=== PATIENT | male | born 1970 | race Hispanic/Latino ===

== ENCOUNTER 2019-04-21 19:35 | Emergency (ER) | payer SELFPAY ==
[2019-04-21] MEDS ORDERED: niCARdipine 20MG In NaCl 20 MG/200 ML BAG ONE (19:52)
--- NOTE | 2019-04-21 20:12 | CT ---
CT BRAIN NONCONTRAST: DATE: 04/21/2019 HISTORY: 48-year-old male with bilateral lower extremity weakness, worse on the left, left upper extremity hyp esthesia (numbness), headache, and dysarthria. Hypertension. FINDINGS: There is no evidence of acute intra-axial or extra-axial hemorrhage. There is no midline shift or any other mass effect. There is no extra-axial fluid collection. There is no evidence of obstructive hydrocephalus. Calvarium is intact. IMPRESSION: No acute intracranial findings.
[2019-04-21 20:21] LABS: #Basophils 0.1 thou/uL (0.0-0.2); #Eosinphils 0.1 thou/uL (0.0-0.7); #Lymphocytes 3.6 thou/uL (1.20-3.40); #Monocytes 0.6 thou/uL (0.11-0.59); #Neutrophils 7.3 thou/uL (1.40-6.50); %Basophils 1.1 % (0.0-1.0); %Eosinophils 1.3 % (0.0-10.0); %Lymphocytes 30.6 % (21.0-51.0); %Monocytes 4.7 % (0.0-10.0); %Neutrophils 62.4 % (42.0-75.0); Hemoglobin 15.5 g/dL (14.0-18.0); Mean Corpuscular HGB CONC 35.9 g/dL (32.0-36.0); Mean Corpuscular Hemoglobin 32.1 pg (27.0-31.0); Mean Corpuscular Volume 89.5 fL (78.0-98.0); Mean Platelet Volume 7.4 fL (7.4-10.4); Platelet Count 266 thou/uL (130-400); RBC Distribution Width 11.9 % (11.5-14.5); Red Blood Cell (RBC) Count 4.82 mill/uL (4.70-6.10); White Blood Cell (WBC) Count 11.7 thou/uL (4.8-10.8)
[2019-04-21 20:33] LABS: ALT (SGPT) 40 U/L (8-55); AST (SGOT) 28 U/L (5-34); Albumin 3.6 g/dL (3.5-5.0); Alkaline Phosphatase 106 U/L (40-110); Anion Gap 15 mmol/L (10-20); BUN (Urea Nitrogen) 12 mg/dL (8.9-20.6); Bilirubin, Total 0.8 mg/dL (0.2-1.2); CK (CPK) 67 U/L (30-200); Calc. Creatinine Clearance 0 mL/min (70-130); Calcium 9.4 mg/dL (7.8-10.44); Carbon Dioxide 26 mmol/L (22-29); Chloride 97 mmol/L (98-107); Estimated GFR-MDRD 74; Globulin 3.8 g/dL (2.4-3.5); Glucose 450 mg/dL (70-105); Potassium 3.2 mmol/L (3.5-5.1); Protein, Total 7.4 g/dL (6.0-8.3); Sodium 135 mmol/L (136-145)
[2019-04-21] MEDS ORDERED: Insulin Regular 300 UNITS/3 ML VIAL ONE (21:07)
[2019-04-22] MEDS ORDERED: Ondansetron PF 4 MG/2 ML Vial IVP PRN (00:55)
[2019-04-22] MEDS ORDERED: Ondansetron ODT 4 MG TAB PO PRN (00:55)
[2019-04-22] MEDS ORDERED: Acetaminophen 325 MG TAB PO PRN (00:55)
[2019-04-22] MEDS ORDERED: Enoxaparin Sodium 40 MG/0.4 ML SYRINGE SC SCH (09:00)
== END 2019-04-21 22:41 | disposition short-term general hospital (02) ==
LOC: SCSER 19:35
DX: I63.9 Cerebral infarction, unspecified (principal); I16.1 Hypertensive emergency; I10 Essential (primary) hypertension; E11.9 Type 2 diabetes mellitus without complications; Z79.84 Long term (current) use of oral hypoglycemic drugs
CPT/HCPCS: 36415; 36416; 70450; 80053; 82550; 84484; 85025; 93005; 96365; 96375; J1815

== ENCOUNTER 2022-05-18 19:20 | Inpatient (IN) | payer SELFPAY ==
[~2022-05-18 19:20] MED LIST: Iopamidol 370 76% 100 ML VIAL ONE
[2022-05-18] MEDS ORDERED: Calcium Chloride 1 GM/10 ML Abboject SYRINGE ONE (19:25)
[2022-05-18] MEDS ORDERED: Amiodarone 150 MG/3 ML VIAL ONE (19:25)
[2022-05-18] MEDS ORDERED: EPINEPHrine 1 MG/10 ML Abboject SYRINGE ONE (19:25)
[2022-05-18 19:41] LABS: Actual Bicarbonate (HCO3a) 17.4 mEq/L (22-28); Analyzer IN Cardio ER; Base Excess (BEa) -11.5 mEq/L (-2.0 to +3.0); CO2 Tension 51.3 mmHg (35.0-45.0); Calcium, Ionized (arterial) 1.41 mmol/L (1.12-1.30); Carboxyhemoglobin (COHb) 0.3 gm% (0.0-3.0); Hemoglobin (Hb) 13.7 g/dL (14.0-18.0); O2 Tension (PaO2), arterial 290.9 mmHg (80.0-100.0); Potassium - ABG Lab 2.68 mmol/L (3.70-5.30)
[2022-05-18 19:44] LABS: Puncture Site LRA; pH, Arterial 7.15 (7.35-7.45)
[2022-05-18 19:50] LABS: ALV-art Gradient 357.975 mmHg (0-20)
[2022-05-18] MEDS ORDERED: Nitroglycerin 100MG/250ML BOT 250 ML ONE (19:52)
[2022-05-18] MEDS ORDERED: Heparin 10,000 UNITS/ 10 ML VIAL ONE (19:52)
[2022-05-18] MEDS ORDERED: Lidocaine 1% (PF) 30 ML VIAL ONE (19:52)
[2022-05-18] MEDS ORDERED: Adenosine 6 MG/2 ML VIAL ONE (19:52)
[2022-05-18] MEDS ORDERED: Fentanyl CADD 100 ML IV SCH (20:00)
[2022-05-18 20:25] LABS: Amphetamine Not Detected (NotDetected); Barbiturates Screen Not Detected (NotDetected); Benzodiazepine Screen Not Detected (NotDetected); Cocaine Metabolite Screen Not Detected (NotDetected); Methadone Not Detected (NotDetected); Methamphetamine Not Detected (NotDetected); Opiate Screen Not Detected (NotDetected); Oxycodone Screen Not Detected (NotDetected); Phencyclidine (PCP) Not Detected (NotDetected); THC/Cannabinoid Screen Detected (NotDetected); Tricyclic Screen Not Detected (NotDetected)
[2022-05-18 20:49] LABS: SARS-CoV-2 NAA Rapid Test Not Detected (NotDetected)
[2022-05-18 20:50] LABS: Hemoglobin 14.3 g/dL (14.0-18.0); Mean Corpuscular HGB CONC 33.2 g/dL (32.0-36.0); Mean Corpuscular Volume 96.4 fl (78.0-98.0); Mean Platelet Volume 7.2 fL (7.4-10.4); Platelet Count 380 thou/uL (130-400); RBC Distribution Width 12.1 % (11.5-14.5); Red Blood Cell (RBC) Count 4.46 mill/uL (4.70-6.10); White Blood Cell (WBC) Count 33.9 thou/uL (4.8-10.8)
[2022-05-18] MEDS ORDERED: Heparin 25,000 units/D5W 500 ML ONE (21:00)
[2022-05-18 21:04] LABS: ALT (SGPT) 140 U/L (8-55); AST (SGOT) 257 U/L (5-34); Acetaminophen Less than 10.0 mcg/mL (10.0-30.0); Alcohol Less than 10 mg/dL (Less than 10); Alkaline Phosphatase 194 U/L (40-110); Anion Gap 19 mmol/L (10-20); BUN (Urea Nitrogen) 14 mg/dL (8.4-25.7); Bilirubin, Total 0.9 mg/dL (0.2-1.2); Calc. Creatinine Clearance 0 mL/min (70-130); Calcium 9.4 mg/dL (7.8-10.44); Carbon Dioxide 17 mmol/L (22-29); Chloride 102 mmol/L (98-107); Estimated GFR 80; Globulin 3.4 g/dL (2.4-3.5); Glucose 360 mg/dL (70-105); Potassium 3.3 mmol/L (3.5-5.1); Protein, Total 6.4 g/dL (6.0-8.3); Salicylate Less than 8.0 mg/dL (15.0-30.0); Sodium 135 mmol/L (136-145)
[2022-05-18] MEDS ORDERED: Midazolam HCl 2 mg/2 ml Vial ONE (21:08)
[2022-05-18] MEDS ORDERED: Ventilator Sedation Protocol 1 EACH FS ONE (21:22)
[2022-05-18] MEDS ORDERED: Electrolyte Replacement Protocol 1 EACH FS PRN (21:22)
[2022-05-18 21:24] LABS: Band 14 % (5-11); Lymphocytes 5 % (21-51); MDiff Complete? YES; Neutrophil 80 % (42-75); Platelet Morphology Comment Appears Adequate; RBC Morphology Normal; Reactive Lymphocytes 1 % (0-10)
[2022-05-18] MEDS ORDERED: Fentanyl BOLUS 250 ML IVPB PRN (21:30)
[2022-05-18] MEDS ORDERED: DISCONTINUE PREVIOUS NARCOTIC PAIN MEDICATIONS AND BENZODIAZEPINES FS SCH (21:30)
[2022-05-18] MEDS ORDERED: Propofol BOLUS 1,000 MG/100 ML VIAL IV PRN (21:30)
[2022-05-18 21:36] LABS: CKMB 67.4 ng/mL (0-6.6)
[2022-05-18] MEDS ORDERED: Nitroglycerin 100MG/250ML BOT IV PRN (21:53)
[2022-05-18 21:54] LABS: Actual Bicarbonate (HCO3a) 17.8 mEq/L (22-28); Base Excess (BEa) -4.8 mEq/L (-2.0 to +3.0); CO2 Tension 26.9 mmHg (35.0-45.0); Calcium, Ionized (arterial) 1.14 mmol/L (1.12-1.30); Carboxyhemoglobin (COHb) 0.3 gm% (0.0-3.0); O2 Tension (PaO2), arterial 212.1 mmHg (80.0-100.0); Potassium - ABG Lab 3.05 mmol/L (3.70-5.30); pH, Arterial 7.44 (7.35-7.45)
[2022-05-18 21:56] LABS: ALV-art Gradient 110.775 mmHg (0-20); Puncture Site Arterial Line
[2022-05-18] MEDS ORDERED: Sodium Chloride 0.9% 1,000 ML IV SCH (22:00)
[2022-05-18] MEDS ORDERED: Aspirin 300 MG Suppository PR SCH (22:00)
[2022-05-18] MEDS ORDERED: Furosemide 20 MG/2 ML VIAL SLOW IVP SCH (22:15)
[2022-05-18] MEDS ORDERED: Carvedilol 6.25 MG TAB PER TUBE SCH (22:15)
[2022-05-18] MEDS ORDERED: Nitroglycerin 50 MG/250 ML BOT 250 ML IVPB PRN (22:22)
[2022-05-18] MEDS: Enalaprilat Dihydrate 1.25 MG/ML VIAL SLOW IVP SCH (23:51)
[2022-05-18] MEDS: Potassium Chloride 20 MEQ in Premix Bag 1 BAG IVPB SCH (23:52)
[2022-05-19] MEDS: cefTRIAXone\\ROCEPHIN 2 GM in Sodium Chloride 0.9% 100 ML IVPB SCH ×2 (00:05→20:54)
[2022-05-19] MEDS: Potassium Chloride 20 MEQ in Premix Bag 1 BAG IVPB SCH (02:13)
[2022-05-19] MEDS: Midazolam HCl 2 mg/2 ml Vial SLOW IVP PRN ×2 (04:13→09:23)
[2022-05-19 04:14] LABS: ALT (SGPT) 120 U/L (8-55); AST (SGOT) 173 U/L (5-34); Albumin 2.8 g/dL (3.5-5.0); Alkaline Phosphatase 156 U/L (40-110); Anion Gap 17 mmol/L (10-20); BUN (Urea Nitrogen) 17 mg/dL (8.4-25.7); Bilirubin, Total 0.8 mg/dL (0.2-1.2); Calc. Creatinine Clearance 114 mL/min (70-130); Calcium 8.8 mg/dL (7.8-10.44); Carbon Dioxide 18 mmol/L (22-29); Chloride 102 mmol/L (98-107); Estimated GFR 83; Globulin 3.1 g/dL (2.4-3.5); Glucose 421 mg/dL (70-105); Phosphorus 3.2 mg/dL (2.3-4.7); Potassium 3.7 mmol/L (3.5-5.1); Protein, Total 5.9 g/dL (6.0-8.3); Sodium 133 mmol/L (136-145)
[2022-05-19 04:22] LABS: Troponin I 8.697 ng/mL (< 0.028)
[2022-05-19 04:38] LABS: Band 23 % (5-11); Hypochromia SLIGHT = 6-15 cells (100X) (0-5/hpf); Lymphocytes 4 % (21-51); MDiff Complete? YES; Mean Corpuscular Hemoglobin 31.2 pg (27.0-31.0); Mean Corpuscular Volume 94.6 fl (78.0-98.0); Mean Platelet Volume 7.1 fL (7.4-10.4); Monocytes 2 % (0-10); Neutrophil 71 % (42-75); Platelet Count 389 thou/uL (130-400); Platelet Morphology Comment Appears Adequate; RBC Distribution Width 11.8 % (11.5-14.5); Red Blood Cell (RBC) Count 4.17 mill/uL (4.70-6.10); White Blood Cell (WBC) Count 29.9 thou/uL (4.8-10.8)
[2022-05-19] MEDS: niCARdipine 25 MG in Sodium Chloride 0.9% 250 ML 250 ML IVPB SCH ×4 (05:24→14:16)
[2022-05-19] MEDS: HumaLOG 300 UNITS/3 ML VIAL SC PRN ×3 (05:26→18:19)
[2022-05-19] MEDS: Heparin 10,000 UNITS/ 10 ML VIAL SLOW IVP SCH (06:56)
[2022-05-19] MEDS: Carvedilol 6.25 MG TAB PER TUBE SCH ×2 (07:23→17:45)
[2022-05-19] MEDS: Enalaprilat Dihydrate 1.25 MG/ML VIAL SLOW IVP SCH ×4 (07:23→23:20)
[2022-05-19] MEDS: Pantoprazole 40 MG VIAL IVP SCH (07:24)
[2022-05-19] MEDS: Aspirin 300 MG Suppository PR SCH (07:24)
[2022-05-19] MEDS ORDERED: Verapamil 5 MG/2 ML VIAL ONE (07:35)
[2022-05-19 07:57] LABS: Actual Bicarbonate (HCO3a) 16.2 mEq/L (22-28); Base Excess (BEa) -4.7 mEq/L (-2.0 to +3.0); Carboxyhemoglobin (COHb) 0.4 gm% (0.0-3.0); Hemoglobin (Hb) 13.4 g/dL (14.0-18.0); O2 Tension (PaO2), arterial 108.4 mmHg (80.0-100.0); Potassium - ABG Lab 3.42 mmol/L (3.70-5.30); pH, Arterial 7.51 (7.35-7.45)
[2022-05-19 07:59] LABS: ALV-art Gradient 79.375 mmHg (0-20); CO2 Tension 20.9 mmHg (35.0-45.0); Puncture Site Arterial Line
[2022-05-19] MEDS: Propofol 1,000 MG/100 ML VIAL IV PRN ×3 (08:07→23:33)
[2022-05-19] MEDS ORDERED: Potassium Chloride 20 MEQ in Premix Bag 1 BAG IVPB SCH ×2 (08:45→09:15)
[2022-05-19 09:18] VITALS: BMI 33.2
[2022-05-19] MEDS: Furosemide 20 MG/2 ML VIAL SLOW IVP SCH (09:21)
[2022-05-19] MEDS: NPH, Human Insulin Isophane 300 UNIT/3 ML VIAL SC SCH ×2 (09:21→20:53)
[2022-05-19] MEDS: Sodium Chloride 0.9% 1,000 ML IV SCH (09:21)
[2022-05-19] MEDS: Morphine 4 MG/ML VIAL SLOW IVP PRN (09:22)
[2022-05-19] MEDS: Heparin 25,000 units/D5W 500 ML IV SCH (19:54)
[2022-05-20 05:06] LABS: ALT (SGPT) 85 U/L (8-55); AST (SGOT) 110 U/L (5-34); Albumin 2.7 g/dL (3.5-5.0); Alkaline Phosphatase 114 U/L (40-110); Anion Gap 11 mmol/L (10-20); BUN (Urea Nitrogen) 23 mg/dL (8.4-25.7); Bilirubin, Total 0.4 mg/dL (0.2-1.2); Calc. Creatinine Clearance 146 mL/min (70-130); Carbon Dioxide 25 mmol/L (22-29); Chloride 105 mmol/L (98-107); Estimated GFR 105; Globulin 3.1 g/dL (2.4-3.5); Glucose 130 mg/dL (70-105); Phosphorus 3.4 mg/dL (2.3-4.7); Potassium 3.3 mmol/L (3.5-5.1); Protein, Total 5.8 g/dL (6.0-8.3); Sodium 138 mmol/L (136-145)
[2022-05-20 05:20] LABS: Troponin I 12.164 ng/mL (< 0.028)
[2022-05-20] MEDS ORDERED: Potassium Chloride 20 MEQ TAB PO SCH (05:30)
[2022-05-20] MEDS: Heparin 10,000 UNITS/ 10 ML VIAL SLOW IVP SCH (05:39)
[2022-05-20] MEDS ORDERED: Potassium Bicarbonate/Cit Ac 20 MEQ TAB PER TUBE SCH (05:45)
[2022-05-20] MEDS: Enalaprilat Dihydrate 1.25 MG/ML VIAL SLOW IVP SCH ×5 (05:53→23:01)
[2022-05-20] MEDS: Carvedilol 6.25 MG TAB PER TUBE SCH ×2 (08:57→17:22)
[2022-05-20] MEDS: Propofol 1,000 MG/100 ML VIAL IV PRN (08:58)
[2022-05-20 10:29] LABS: #Lymphocytes 1.7 thou/uL (1.20-3.40); #Monocytes 1.3 thou/uL (0.11-0.59); #Neutrophils 21.3 thou/uL (1.40-6.50); %Basophils 0.1 % (0.0-1.0); %Eosinophils 0.2 % (0.0-10.0); %Lymphocytes 6.9 % (21.0-51.0); %Monocytes 5.2 % (0.0-10.0); %Neutrophils 87.7 % (42.0-75.0); Hemoglobin 12.7 g/dL (14.0-18.0); Mean Corpuscular HGB CONC 33.5 g/dL (32.0-36.0); Mean Corpuscular Hemoglobin 31.9 pg (27.0-31.0); Mean Corpuscular Volume 95.1 fl (78.0-98.0); Mean Platelet Volume 7.3 fL (7.4-10.4); Platelet Count 346 thou/uL (130-400); RBC Distribution Width 12.1 % (11.5-14.5); Red Blood Cell (RBC) Count 3.98 mill/uL (4.70-6.10); White Blood Cell (WBC) Count 24.4 thou/uL (4.8-10.8)
[2022-05-20] MEDS: Pantoprazole 40 MG VIAL IVP SCH (10:31)
[2022-05-20] MEDS: Aspirin 300 MG Suppository PR SCH (10:33)
[2022-05-20] MEDS: Furosemide 20 MG/2 ML VIAL SLOW IVP SCH (10:33)
[2022-05-20] MEDS: NPH, Human Insulin Isophane 300 UNIT/3 ML VIAL SC SCH (10:34)
[2022-05-20] MEDS: niCARdipine 25 MG in Sodium Chloride 0.9% 250 ML 250 ML IVPB SCH ×2 (10:42→17:23)
[2022-05-20 10:47] LABS: Potassium 3.7 mmol/L (3.5-5.1)
[2022-05-20] MEDS: Sodium Chloride 0.9% 1,000 ML IV SCH (10:52)
[2022-05-20] MEDS ORDERED: Piperacillin/Tazobactam 3.375 GM in Sodium Chloride 0.9% 100 ML IVPB SCH (14:15)
[2022-05-20] MEDS: Acetaminophen 325 MG TAB PER TUBE PRN ×2 (14:30→21:07)
[2022-05-20] MEDS: Heparin 25,000 units/D5W 500 ML IV SCH (15:18)
[2022-05-20] MEDS ORDERED: Piperacillin/Tazobactam 4.5 GM in Sodium Chloride 0.9% 100 ML IVPB SCH (18:00)
[2022-05-20] MEDS: Piperacillin/Tazobactam 3.375 GM in Sodium Chloride 0.9% 100 ML IVPB SCH (18:08)
[2022-05-20 19:16] LABS: Glucose POC Confirmation 70 mg/dl (70-105)
[2022-05-20] MEDS ORDERED: Dextrose 5% in Water 1,000 ML IV PRN (20:15)
[2022-05-20] MEDS ORDERED: Dextrose 50% Abboject 50 ML SYRINGE IVP PRN (20:15)
[2022-05-21] MEDS: Piperacillin/Tazobactam 3.375 GM in Sodium Chloride 0.9% 100 ML IVPB SCH ×3 (02:40→17:26)
[2022-05-21 04:08] LABS: #Monocytes 1.3 thou/uL (0.11-0.59); %Basophils 0.2 % (0.0-1.0); %Eosinophils 0.1 % (0.0-10.0); %Lymphocytes 9.3 % (21.0-51.0); %Monocytes 5.9 % (0.0-10.0); %Neutrophils 84.5 % (42.0-75.0); Hemoglobin 12.1 g/dL (14.0-18.0); Mean Corpuscular HGB CONC 32.9 g/dL (32.0-36.0); Mean Corpuscular Hemoglobin 32.3 pg (27.0-31.0); Mean Corpuscular Volume 98.3 fl (78.0-98.0); Mean Platelet Volume 7.6 fL (7.4-10.4); Platelet Count 311 thou/uL (130-400); RBC Distribution Width 11.9 % (11.5-14.5); Red Blood Cell (RBC) Count 3.74 mill/uL (4.70-6.10); White Blood Cell (WBC) Count 21.3 thou/uL (4.8-10.8)
[2022-05-21 04:17] LABS: Phosphorus 2.8 mg/dL (2.3-4.7)
[2022-05-21] MEDS: Enalaprilat Dihydrate 1.25 MG/ML VIAL SLOW IVP SCH ×3 (05:45→17:25)
[2022-05-21] MEDS: niCARdipine 25 MG in Sodium Chloride 0.9% 250 ML 250 ML IVPB SCH ×5 (05:53→22:19)
[2022-05-21 07:56] LABS: Actual Bicarbonate (HCO3a) 21.4 mEq/L (22-28); Base Excess (BEa) -0.6 mEq/L (-2.0 to +3.0); CO2 Tension 27.8 mmHg (35.0-45.0); Calcium, Ionized (arterial) 1.01 mmol/L (1.12-1.30); Carboxyhemoglobin (COHb) 1.1 gm% (0.0-3.0); Hemoglobin (Hb) 12.5 g/dL (14.0-18.0); O2 Tension (PaO2), arterial 85.7 mmHg (80.0-100.0); Potassium - ABG Lab 3.44 mmol/L (3.70-5.30)
[2022-05-21 08:04] LABS: Puncture Site RRA
[2022-05-21] MEDS ORDERED: FLU VACC QS2022-23(6MOS UP)/PF 60 MCG/0.5 ML SYRINGE IM ONE (09:00)
[2022-05-21] MEDS: Furosemide 20 MG/2 ML VIAL SLOW IVP SCH (10:53)
[2022-05-21] MEDS: Pantoprazole 40 MG VIAL IVP SCH (10:53)
[2022-05-21] MEDS: Aspirin 300 MG Suppository PR SCH (10:57)
[2022-05-21] MEDS: Carvedilol 6.25 MG TAB PER TUBE SCH ×2 (11:08→17:25)
[2022-05-21] MEDS: Sodium Chloride 0.9% 1,000 ML IV SCH (12:18)
[2022-05-21] MEDS ORDERED: Dextrose 5% in Water 1,000 ML IV SCH (15:15)
[2022-05-21] MEDS: Midazolam HCl 2 mg/2 ml Vial SLOW IVP PRN (19:40)
[2022-05-21] MEDS: Enoxaparin Sodium 40 MG/0.4 ML SYRINGE SC SCH (20:57)
[2022-05-21] MEDS: HumaLOG 300 UNITS/3 ML VIAL SC PRN (23:00)
[2022-05-22] MEDS: HumaLOG 300 UNITS/3 ML VIAL SC PRN ×3 (00:28→23:02)
[2022-05-22] MEDS: Enalaprilat Dihydrate 1.25 MG/ML VIAL SLOW IVP SCH ×5 (01:04→23:52)
[2022-05-22] MEDS: Piperacillin/Tazobactam 3.375 GM in Sodium Chloride 0.9% 100 ML IVPB SCH ×3 (01:08→17:28)
[2022-05-22] MEDS: niCARdipine 25 MG in Sodium Chloride 0.9% 250 ML 250 ML IVPB SCH ×3 (02:21→21:50)
[2022-05-22 04:02] LABS: RBC Distribution Width 11.6 % (11.5-14.5)
[2022-05-22] MEDS ORDERED: Potassium Phosphate 15 MMOL in Sodium Chloride 0.9% 100 ML IVPB SCH (06:00)
[2022-05-22 06:21] LABS: Hemoglobin 13.8 g/dL (14.0-18.0); Red Blood Cell (RBC) Count 4.23 mill/uL (4.70-6.10)
[2022-05-22 06:22] LABS: Mean Corpuscular HGB CONC 34.9 g/dL (32.0-36.0); Mean Corpuscular Hemoglobin 32.5 pg (27.0-31.0)
[2022-05-22 06:23] LABS: Mean Corpuscular Volume 93.1 fl (78.0-98.0); Platelet Count 344 thou/uL (130-400)
[2022-05-22 06:24] LABS: %Lymphocytes 8.9 % (21.0-51.0); %Monocytes 4.5 % (0.0-10.0); %Neutrophils 85.6 % (42.0-75.0); Mean Platelet Volume 7.3 fL (7.4-10.4)
[2022-05-22 06:25] LABS: #Lymphocytes 1.6 thou/uL (1.20-3.40); #Monocytes 0.8 thou/uL (0.11-0.59); #Neutrophils 15.4 thou/uL (1.40-6.50); %Basophils 0.4 % (0.0-1.0); %Eosinophils 0.5 % (0.0-10.0)
[2022-05-22 06:26] LABS: #Basophils 0.1 thou/uL (0.0-0.2); #Eosinphils 0.1 thou/uL (0.0-0.7)
[2022-05-22 07:10] LABS: Base Excess (BEa) -1.9 mEq/L (-2.0 to +3.0); Hemoglobin (Hb) 13.3 g/dL (14.0-18.0); O2 Tension (PaO2), arterial 68.5 mmHg (80.0-100.0); pH, Arterial 7.53 (7.35-7.45)
[2022-05-22 07:49] LABS: CO2 Tension 23.3 mmHg (35.0-45.0); Puncture Site RRA
[2022-05-22 07:50] LABS: ALV-art Gradient 116.275 mmHg (0-20)
[2022-05-22] MEDS ORDERED: Labetalol HCl 100 MG/20 ML VIAL IVPB PRN (08:53)
[2022-05-22] MEDS ORDERED: hydrALAZINE 20 MG/ML VIAL SLOW IVP PRN (08:54)
[2022-05-22] MEDS: Carvedilol 6.25 MG TAB PER TUBE SCH ×2 (09:50→17:24)
[2022-05-22] MEDS: Pantoprazole 40 MG VIAL IVP SCH (09:51)
[2022-05-22] MEDS: Furosemide 20 MG/2 ML VIAL SLOW IVP SCH (09:51)
[2022-05-22] MEDS: Aspirin 300 MG Suppository PR SCH (09:51)
[2022-05-22] MEDS: Midazolam HCl 2 mg/2 ml Vial SLOW IVP PRN (17:22)
[2022-05-22 19:41] LABS: #Lymphocytes 1.4 thou/uL (1.20-3.40); #Monocytes 0.7 thou/uL (0.11-0.59); #Neutrophils 13.7 thou/uL (1.40-6.50); %Basophils 0.2 % (0.0-1.0); %Eosinophils 0.2 % (0.0-10.0); %Lymphocytes 8.7 % (21.0-51.0); %Monocytes 4.6 % (0.0-10.0); %Neutrophils 86.4 % (42.0-75.0); Hemoglobin 12.6 g/dL (14.0-18.0); Mean Corpuscular Hemoglobin 31.8 pg (27.0-31.0); Mean Corpuscular Volume 93.5 fl (78.0-98.0); Mean Platelet Volume 7.4 fL (7.4-10.4); Platelet Count 379 thou/uL (130-400); RBC Distribution Width 11.7 % (11.5-14.5); Red Blood Cell (RBC) Count 3.95 mill/uL (4.70-6.10); White Blood Cell (WBC) Count 15.9 thou/uL (4.8-10.8)
[2022-05-22 19:48] LABS: INR-International Normal Ratio 1.1; Prothrombin Time 14.4 sec (12.0-14.7)
[2022-05-22] MEDS: Acetaminophen 325 MG TAB PER TUBE PRN (19:48)
[2022-05-22 20:00] LABS: ALT (SGPT) 39 U/L (8-55); AST (SGOT) 68 U/L (5-34); Albumin 2.5 g/dL (3.5-5.0); Alkaline Phosphatase 100 U/L (40-110); Anion Gap 14 mmol/L (10-20); BUN (Urea Nitrogen) 26 mg/dL (8.4-25.7); Calc. Creatinine Clearance 133 mL/min (70-130); Calcium 7.5 mg/dL (7.8-10.44); Carbon Dioxide 19 mmol/L (22-29); Chloride 104 mmol/L (98-107); Estimated GFR 97; Globulin 3.3 g/dL (2.4-3.5); Glucose 167 mg/dL (70-105); Potassium 3.3 mmol/L (3.5-5.1); Protein, Total 5.8 g/dL (6.0-8.3); Sodium 134 mmol/L (136-145)
[2022-05-22] MEDS: Atorvastatin Calcium 40 MG TAB PO SCH (20:25)
[2022-05-22] MEDS: Enoxaparin Sodium 40 MG/0.4 ML SYRINGE SC SCH (20:25)
[2022-05-22 23:24] LABS: Bilirubin Negative (Negative); Blood, Urine 2+ (Negative); Clarity Turbid (Clear); Glucose, Urine (Dipstick) 150 mg/dL (Negative); Ketone, Urine 40 mg/dL (Negative); Leukocyte Negative Leu/uL (Negative); Nitrite Negative (Negative); Protein, Urine (Dipstick) 300 mg/dL (Neg-Trace); Specific Gravity, Urine 1.021 (1.002-1.036); Urobilinogen Normal mg/dL (Less than 2)
[2022-05-22 23:34] LABS: Bacteria/HPF None Seen HPF (None Seen); RBC/HPF 0-3 HPF (0-3); Squamous Epithelial None Seen HPF (0-3); WBC/HPF 0-3 HPF (0-3)
[2022-05-22] MEDS: Potassium Chloride 20 MEQ in Premix Bag 1 BAG IVPB SCH (23:53)
[2022-05-23] MEDS: niCARdipine 25 MG in Sodium Chloride 0.9% 250 ML 250 ML IVPB SCH ×5 (01:05→22:42)
[2022-05-23] MEDS: Acetaminophen 325 MG TAB PER TUBE PRN ×2 (01:37→22:31)
[2022-05-23] MEDS: Morphine 4 MG/ML VIAL SLOW IVP PRN ×2 (01:40→12:28)
[2022-05-23] MEDS: Piperacillin/Tazobactam 3.375 GM in Sodium Chloride 0.9% 100 ML IVPB SCH ×3 (02:21→17:48)
[2022-05-23] MEDS: Potassium Chloride 20 MEQ in Premix Bag 1 BAG IVPB SCH ×3 (02:31→21:25)
[2022-05-23 04:56] LABS: #Lymphocytes 1.6 thou/uL (1.20-3.40); #Neutrophils 14.9 thou/uL (1.40-6.50); %Basophils 0.2 % (0.0-1.0); %Eosinophils 0.2 % (0.0-10.0); %Lymphocytes 9.1 % (21.0-51.0); %Monocytes 5.6 % (0.0-10.0); Hemoglobin 12.8 g/dL (14.0-18.0); Mean Corpuscular HGB CONC 34.1 g/dL (32.0-36.0); Mean Corpuscular Hemoglobin 32.2 pg (27.0-31.0); Mean Corpuscular Volume 94.4 fl (78.0-98.0); Mean Platelet Volume 7.5 fL (7.4-10.4); Platelet Count 386 thou/uL (130-400); RBC Distribution Width 11.8 % (11.5-14.5); Red Blood Cell (RBC) Count 3.96 mill/uL (4.70-6.10); White Blood Cell (WBC) Count 17.6 thou/uL (4.8-10.8)
[2022-05-23 06:11] LABS: ALT (SGPT) 36 U/L (8-55); AST (SGOT) 62 U/L (5-34); Albumin 2.5 g/dL (3.5-5.0); Alkaline Phosphatase 98 U/L (40-110); Anion Gap 13 mmol/L (10-20); BUN (Urea Nitrogen) 27 mg/dL (8.4-25.7); Bilirubin, Total 1.2 mg/dL (0.2-1.2); Calc. Creatinine Clearance 124 mL/min (70-130); Calcium 7.6 mg/dL (7.8-10.44); Carbon Dioxide 18 mmol/L (22-29); Chloride 107 mmol/L (98-107); Estimated GFR 88; Globulin 3.3 g/dL (2.4-3.5); Glucose 165 mg/dL (70-105); Phosphorus 2.2 mg/dL (2.3-4.7); Potassium 3.7 mmol/L (3.5-5.1); Protein, Total 5.8 g/dL (6.0-8.3); Sodium 134 mmol/L (136-145)
[2022-05-23] MEDS: Enalaprilat Dihydrate 1.25 MG/ML VIAL SLOW IVP SCH ×3 (06:12→17:48)
[2022-05-23 07:42] LABS: Actual Bicarbonate (HCO3a) 17.8 mEq/L (22-28); Base Excess (BEa) -3.6 mEq/L (-2.0 to +3.0); Calcium, Ionized (arterial) 1.04 mmol/L (1.12-1.30); Carboxyhemoglobin (COHb) 0.4 gm% (0.0-3.0); Hemoglobin (Hb) 12.7 g/dL (14.0-18.0); O2 Tension (PaO2), arterial 74.5 mmHg (80.0-100.0); Potassium - ABG Lab 3.45 mmol/L (3.70-5.30)
[2022-05-23] MEDS: Furosemide 20 MG/2 ML VIAL SLOW IVP SCH (07:45)
[2022-05-23] MEDS: Carvedilol 6.25 MG TAB PER TUBE SCH ×2 (07:45→17:48)
[2022-05-23] MEDS: Pantoprazole 40 MG VIAL IVP SCH (07:46)
[2022-05-23] MEDS: Aspirin 300 MG Suppository PR SCH (07:46)
[2022-05-23 07:50] LABS: CO2 Tension 23.1 mmHg (35.0-45.0); Puncture Site Arterial Line
[2022-05-23 07:51] LABS: ALV-art Gradient 110.525 mmHg (0-20)
[2022-05-23] MEDS: Lansoprazole 15 MG/5 ML (BATCHED)UDCUP PER TUBE SCH (08:51)
[2022-05-23] MEDS ORDERED: Midazolam HCl 2 mg/2 ml Vial ONE (11:37)
[2022-05-23] MEDS ORDERED: Midazolam HCl 2 mg/2 ml Vial SLOW IVP SCH (11:45)
[2022-05-23] MEDS ORDERED: Albumin 25% 25 GM/100 ML BOT IVPB SCH (12:15)
[2022-05-23 12:30] LABS: INR-International Normal Ratio 1.2; PTT 32.9 sec (22.9-36.1); Prothrombin Time 15.3 sec (12.0-14.7)
[2022-05-23 12:34] LABS: Lactic Acid 1.3 mmol/L (0.5-2.2)
[2022-05-23 12:37] LABS: Hemoglobin A1c 7.5 % (4.0-6.0)
[2022-05-23 12:38] LABS: Magnesium 1.7 mg/dL (1.6-2.6)
[2022-05-23 12:40] LABS: ALT (SGPT) 33 U/L (8-55); AST (SGOT) 57 U/L (5-34); Albumin 2.3 g/dL (3.5-5.0); Alkaline Phosphatase 87 U/L (40-110); Bilirubin, Direct 0.4 mg/dL (0.1-0.3); Phosphorus 2.2 mg/dL (2.3-4.7); Protein, Total 5.4 g/dL (6.0-8.3)
[2022-05-23] MEDS ORDERED: Magnesium 2 GM/50 ML(in water) 2 GM in Premix Bag 1 BAG IVPB SCH (13:15)
[2022-05-23 14:34] LABS: Actual Bicarbonate (HCO3a) 17.7 mEq/L (22-28); Analyzer IN Cardio ER; Base Excess (BEa) -2.5 mEq/L (-2.0 to +3.0); Calcium, Ionized (arterial) 1.08 mmol/L (1.12-1.30); Carboxyhemoglobin (COHb) 0.3 gm% (0.0-3.0); Hemoglobin (Hb) 13.6 g/dL (14.0-18.0); Potassium - ABG Lab 3.58 mmol/L (3.70-5.30)
[2022-05-23 14:40] LABS: CO2 Tension 20.8 mmHg (35.0-45.0); Puncture Site Arterial Line; pH, Arterial 7.55 (7.35-7.45)
[2022-05-23 15:22] LABS: #Eosinphils 0.1 thou/uL (0.0-0.7); #Lymphocytes 1.9 thou/uL (1.20-3.40); #Monocytes 0.9 thou/uL (0.11-0.59); #Neutrophils 11.1 thou/uL (1.40-6.50); %Basophils 0.2 % (0.0-1.0); %Eosinophils 0.6 % (0.0-10.0); %Lymphocytes 13.2 % (21.0-51.0); %Monocytes 6.5 % (0.0-10.0); %Neutrophils 79.4 % (42.0-75.0); Mean Corpuscular HGB CONC 34.6 g/dL (32.0-36.0); Mean Corpuscular Hemoglobin 32.6 pg (27.0-31.0); Mean Corpuscular Volume 94.4 fl (78.0-98.0); Mean Platelet Volume 7.2 fL (7.4-10.4); Platelet Count 353 thou/uL (130-400); RBC Distribution Width 11.7 % (11.5-14.5); Red Blood Cell (RBC) Count 3.36 mill/uL (4.70-6.10); White Blood Cell (WBC) Count 13.9 thou/uL (4.8-10.8)
[2022-05-23 15:44] LABS: ALT (SGPT) 29 U/L (8-55); AST (SGOT) 49 U/L (5-34); Albumin 2.7 g/dL (3.5-5.0); Alkaline Phosphatase 74 U/L (40-110); Anion Gap 9 mmol/L (10-20); BUN (Urea Nitrogen) 27 mg/dL (8.4-25.7); Bilirubin, Total 1.2 mg/dL (0.2-1.2); Calc. Creatinine Clearance 131 mL/min (70-130); Calcium 7.2 mg/dL (7.8-10.44); Carbon Dioxide 20 mmol/L (22-29); Chloride 110 mmol/L (98-107); Estimated GFR 95; Globulin 2.7 g/dL (2.4-3.5); Glucose 171 mg/dL (70-105); Potassium 3.2 mmol/L (3.5-5.1); Protein, Total 5.4 g/dL (6.0-8.3); Sodium 136 mmol/L (136-145)
[2022-05-23 15:57] LABS: Bacteria/HPF 2+ HPF (None Seen); Bilirubin Negative (Negative); Blood, Urine 3+ (Negative); Clarity Turbid (Clear); Glucose, Urine (Dipstick) 70 mg/dL (Negative); Ketone, Urine 20 mg/dL (Negative); Leukocyte Negative Leu/uL (Negative); Nitrite Negative (Negative); Protein, Urine (Dipstick) 100 mg/dL (Neg-Trace); RBC/HPF Greater than 50 HPF (0-3); Specific Gravity, Urine 1.017 (1.002-1.036); Squamous Epithelial None Seen HPF (0-3); Urobilinogen Normal mg/dL (Less than 2); pH, Urine 5.5 (5.0-9.0)
[2022-05-23] MEDS ORDERED: Furosemide 20 MG/2 ML VIAL SLOW IVP SCH (16:00)
[2022-05-23] MEDS: HumaLOG 300 UNITS/3 ML VIAL SC PRN ×2 (16:42→22:31)
[2022-05-23 18:27] LABS: INR-International Normal Ratio 1.2; PTT 31.5 sec (22.9-36.1); Prothrombin Time 15.2 sec (12.0-14.7)
[2022-05-23 18:28] LABS: Lactic Acid 0.8 mmol/L (0.5-2.2)
[2022-05-23 18:36] LABS: Magnesium 2.4 mg/dL (1.6-2.6)
[2022-05-23 18:37] LABS: ALT (SGPT) 28 U/L (8-55); AST (SGOT) 50 U/L (5-34); Albumin 2.6 g/dL (3.5-5.0); Alkaline Phosphatase 73 U/L (40-110); Bilirubin, Direct 0.3 mg/dL (0.1-0.3); Bilirubin, Total 0.9 mg/dL (0.2-1.2); Phosphorus 2.5 mg/dL (2.3-4.7); Protein, Total 5.3 g/dL (6.0-8.3)
[2022-05-23] MEDS: Enoxaparin Sodium 40 MG/0.4 ML SYRINGE SC SCH (21:24)
[2022-05-23] MEDS: Atorvastatin Calcium 40 MG TAB PO SCH (21:25)
[2022-05-23 22:18] LABS: Actual Bicarbonate (HCO3a) 20.8 mEq/L (22-28); Base Excess (BEa) 1.3 mEq/L (-2.0 to +3.0); Calcium, Ionized (arterial) 1.07 mmol/L (1.12-1.30); Carboxyhemoglobin (COHb) 0.3 gm% (0.0-3.0); Hemoglobin (Hb) 12.4 g/dL (14.0-18.0); Potassium - ABG Lab 3.82 mmol/L (3.70-5.30)
[2022-05-23 22:19] LABS: CO2 Tension 20.7 mmHg (35.0-45.0); O2 Tension (PaO2), arterial 523.3 mmHg (80.0-100.0); pH, Arterial 7.62 (7.35-7.45)
[2022-05-23 22:20] LABS: ALV-art Gradient 163.825 mmHg (0-20); Puncture Site ALINE
[2022-05-24] MEDS: Enalaprilat Dihydrate 1.25 MG/ML VIAL SLOW IVP SCH ×5 (00:21→23:44)
[2022-05-24 01:01] LABS: #Eosinphils 0.1 thou/uL (0.0-0.7); #Lymphocytes 1.9 thou/uL (1.20-3.40); #Neutrophils 12.9 thou/uL (1.40-6.50); %Basophils 0.2 % (0.0-1.0); %Eosinophils 0.4 % (0.0-10.0); %Lymphocytes 11.9 % (21.0-51.0); %Monocytes 6.5 % (0.0-10.0); Hemoglobin 11.3 g/dL (14.0-18.0); Mean Corpuscular HGB CONC 34.5 g/dL (32.0-36.0); Mean Corpuscular Hemoglobin 32.5 pg (27.0-31.0); Mean Corpuscular Volume 94.3 fl (78.0-98.0); Mean Platelet Volume 7.6 fL (7.4-10.4); Platelet Count 401 thou/uL (130-400); Red Blood Cell (RBC) Count 3.47 mill/uL (4.70-6.10)
[2022-05-24 01:05] LABS: INR-International Normal Ratio 1.1; PTT 35.7 sec (22.9-36.1); Prothrombin Time 14.8 sec (12.0-14.7)
[2022-05-24 01:10] LABS: Lactic Acid 0.9 mmol/L (0.5-2.2)
[2022-05-24 01:14] LABS: ALT (SGPT) 31 U/L (8-55); AST (SGOT) 53 U/L (5-34); Albumin 2.7 g/dL (3.5-5.0); Alkaline Phosphatase 79 U/L (40-110); Anion Gap 11 mmol/L (10-20); BUN (Urea Nitrogen) 27 mg/dL (8.4-25.7); Bilirubin, Direct 0.4 mg/dL (0.1-0.3); Bilirubin, Total 0.9 mg/dL (0.2-1.2); Calc. Creatinine Clearance 129 mL/min (70-130); Carbon Dioxide 18 mmol/L (22-29); Chloride 108 mmol/L (98-107); Estimated GFR 92; Glucose 176 mg/dL (70-105); Magnesium 2.4 mg/dL (1.6-2.6); Potassium 3.7 mmol/L (3.5-5.1); Protein, Total 5.8 g/dL (6.0-8.3); Sodium 133 mmol/L (136-145)
[2022-05-24] MEDS: Morphine 4 MG/ML VIAL SLOW IVP PRN ×3 (02:15→14:32)
[2022-05-24] MEDS: Piperacillin/Tazobactam 3.375 GM in Sodium Chloride 0.9% 100 ML IVPB SCH ×3 (02:16→16:35)
[2022-05-24] MEDS ORDERED: Potassium Phosphate 15 MMOL in Sodium Chloride 0.9% 100 ML IVPB SCH (03:15)
[2022-05-24] MEDS: niCARdipine 25 MG in Sodium Chloride 0.9% 250 ML 250 ML IVPB SCH ×5 (04:05→22:45)
[2022-05-24] MEDS: HumaLOG 300 UNITS/3 ML VIAL SC PRN ×2 (04:22→13:42)
[2022-05-24 06:25] LABS: #Eosinphils 0.1 thou/uL (0.0-0.7); #Lymphocytes 2.3 thou/uL (1.20-3.40); #Monocytes 1.4 thou/uL (0.11-0.59); #Neutrophils 15.1 thou/uL (1.40-6.50); %Basophils 0.1 % (0.0-1.0); %Eosinophils 0.3 % (0.0-10.0); %Lymphocytes 12.4 % (21.0-51.0); %Monocytes 7.2 % (0.0-10.0); %Neutrophils 79.9 % (42.0-75.0); Hemoglobin 11.9 g/dL (14.0-18.0); Mean Corpuscular HGB CONC 33.8 g/dL (32.0-36.0); Mean Corpuscular Hemoglobin 31.7 pg (27.0-31.0); Mean Corpuscular Volume 93.8 fl (78.0-98.0); Mean Platelet Volume 7.3 fL (7.4-10.4); Platelet Count 392 thou/uL (130-400); RBC Distribution Width 11.9 % (11.5-14.5); Red Blood Cell (RBC) Count 3.75 mill/uL (4.70-6.10); White Blood Cell (WBC) Count 18.9 thou/uL (4.8-10.8)
[2022-05-24] MEDS: Midazolam HCl 2 mg/2 ml Vial SLOW IVP PRN ×3 (06:38→12:39)
[2022-05-24 06:39] LABS: INR-International Normal Ratio 1.1; PTT 32.3 sec (22.9-36.1); Prothrombin Time 14.5 sec (12.0-14.7)
[2022-05-24 06:42] LABS: Lactic Acid 0.8 mmol/L (0.5-2.2)
[2022-05-24 06:47] LABS: ALT (SGPT) 30 U/L (8-55); AST (SGOT) 54 U/L (5-34); Albumin 2.7 g/dL (3.5-5.0); Alkaline Phosphatase 79 U/L (40-110); Anion Gap 11 mmol/L (10-20); BUN (Urea Nitrogen) 24 mg/dL (8.4-25.7); Bilirubin, Direct 0.4 mg/dL (0.1-0.3); Calc. Creatinine Clearance 135 mL/min (70-130); Carbon Dioxide 19 mmol/L (22-29); Chloride 110 mmol/L (98-107); Estimated GFR 97; Glucose 156 mg/dL (70-105); Magnesium 2.3 mg/dL (1.6-2.6); Phosphorus 2.3 mg/dL (2.3-4.7); Potassium 3.7 mmol/L (3.5-5.1); Protein, Total 5.8 g/dL (6.0-8.3); Sodium 136 mmol/L (136-145)
[2022-05-24] MEDS: Aspirin 300 MG Suppository PR SCH (08:25)
[2022-05-24] MEDS: Carvedilol 6.25 MG TAB PER TUBE SCH ×2 (08:25→16:35)
[2022-05-24] MEDS: Furosemide 20 MG/2 ML VIAL SLOW IVP SCH (08:25)
[2022-05-24 08:50] LABS: Actual Bicarbonate (HCO3a) 18.8 mEq/L (22-28); Calcium, Ionized (arterial) 1.11 mmol/L (1.12-1.30); Hemoglobin (Hb) 12.7 g/dL (14.0-18.0); O2 Tension (PaO2), arterial 453.1 mmHg (80.0-100.0); Potassium - ABG Lab 3.91 mmol/L (3.70-5.30)
[2022-05-24] MEDS: Lansoprazole 15 MG/5 ML (BATCHED)UDCUP PER TUBE SCH (08:54)
[2022-05-24 08:56] LABS: CO2 Tension 20.3 mmHg (35.0-45.0); pH, Arterial 7.58 (7.35-7.45)
[2022-05-24 08:57] LABS: ALV-art Gradient 234.525 mmHg (0-20); Puncture Site Arterial Line
[2022-05-24 12:09] LABS: Bilirubin Negative (Negative); Blood, Urine 3+ (Negative); Clarity Turbid (Clear); Glucose, Urine (Dipstick) 150 mg/dL (Negative); Ketone, Urine 20 mg/dL (Negative); Leukocyte Negative Leu/uL (Negative); Nitrite Negative (Negative); Protein, Urine (Dipstick) 100 mg/dL (Neg-Trace); RBC/HPF Greater than 50 HPF (0-3); Specific Gravity, Urine 1.014 (1.002-1.036); Squamous Epithelial None Seen HPF (0-3); Urobilinogen Normal mg/dL (Less than 2); WBC/HPF 0-3 HPF (0-3)
[2022-05-24 12:12] LABS: Bacteria/HPF 1+ HPF (None Seen)
[2022-05-24 13:19] LABS: #Eosinphils 0.1 thou/uL (0.0-0.7); #Lymphocytes 1.9 thou/uL (1.20-3.40); #Monocytes 1.1 thou/uL (0.11-0.59); #Neutrophils 14.5 thou/uL (1.40-6.50); %Basophils 0.1 % (0.0-1.0); %Eosinophils 0.5 % (0.0-10.0); %Lymphocytes 10.6 % (21.0-51.0); %Neutrophils 82.8 % (42.0-75.0); Hemoglobin 11.6 g/dL (14.0-18.0); Mean Corpuscular HGB CONC 33.9 g/dL (32.0-36.0); Mean Corpuscular Hemoglobin 32.3 pg (27.0-31.0); Mean Corpuscular Volume 95.4 fl (78.0-98.0); Mean Platelet Volume 7.1 fL (7.4-10.4); Platelet Count 395 thou/uL (130-400); White Blood Cell (WBC) Count 17.5 thou/uL (4.8-10.8)
[2022-05-24 13:30] LABS: INR-International Normal Ratio 1.1; PTT 31.7 sec (22.9-36.1); Prothrombin Time 14.8 sec (12.0-14.7)
[2022-05-24 13:33] LABS: Lactic Acid 0.7 mmol/L (0.5-2.2)
[2022-05-24 13:38] LABS: ALT (SGPT) 29 U/L (8-55); AST (SGOT) 50 U/L (5-34); Albumin 2.5 g/dL (3.5-5.0); Alkaline Phosphatase 80 U/L (40-110); Anion Gap 13 mmol/L (10-20); BUN (Urea Nitrogen) 24 mg/dL (8.4-25.7); Bilirubin, Direct 0.3 mg/dL (0.1-0.3); Bilirubin, Total 0.8 mg/dL (0.2-1.2); Calc. Creatinine Clearance 150 mL/min (70-130); Calcium 7.9 mg/dL (7.8-10.44); Carbon Dioxide 16 mmol/L (22-29); Chloride 111 mmol/L (98-107); Estimated GFR 104; Globulin 2.9 g/dL (2.4-3.5); Glucose 179 mg/dL (70-105); Magnesium 2.1 mg/dL (1.6-2.6); Phosphorus 2.5 mg/dL (2.3-4.7); Potassium 3.6 mmol/L (3.5-5.1); Protein, Total 5.4 g/dL (6.0-8.3); Sodium 136 mmol/L (136-145)
[2022-05-24 18:45] LABS: INR-International Normal Ratio 1.1; PTT 30.6 sec (22.9-36.1); Prothrombin Time 14.7 sec (12.0-14.7)
[2022-05-24 18:47] LABS: Lactic Acid 0.7 mmol/L (0.5-2.2)
[2022-05-24 18:52] LABS: ALT (SGPT) 29 U/L (8-55); AST (SGOT) 50 U/L (5-34); Albumin 2.7 g/dL (3.5-5.0); Alkaline Phosphatase 78 U/L (40-110); Anion Gap 11 mmol/L (10-20); BUN (Urea Nitrogen) 22 mg/dL (8.4-25.7); Bilirubin, Direct 0.3 mg/dL (0.1-0.3); Bilirubin, Total 0.8 mg/dL (0.2-1.2); Calc. Creatinine Clearance 157 mL/min (70-130); Carbon Dioxide 19 mmol/L (22-29); Chloride 111 mmol/L (98-107); Estimated GFR 105; Glucose 141 mg/dL (70-105); Magnesium 2.2 mg/dL (1.6-2.6); Phosphorus 2.5 mg/dL (2.3-4.7); Potassium 3.6 mmol/L (3.5-5.1); Protein, Total 5.7 g/dL (6.0-8.3); Sodium 137 mmol/L (136-145)
[2022-05-24] MEDS: Enoxaparin Sodium 40 MG/0.4 ML SYRINGE SC SCH (21:15)
[2022-05-24] MEDS: Atorvastatin Calcium 40 MG TAB PO SCH (21:16)
[2022-05-24 22:39] LABS: Actual Bicarbonate (HCO3a) 16.4 mEq/L (22-28); Base Excess (BEa) -2.1 mEq/L (-2.0 to +3.0); Calcium, Ionized (arterial) 1.12 mmol/L (1.12-1.30); Carboxyhemoglobin (COHb) 0.1 gm% (0.0-3.0); Hemoglobin (Hb) 12.8 g/dL (14.0-18.0); Potassium - ABG Lab 3.69 mmol/L (3.70-5.30)
[2022-05-24 22:40] LABS: CO2 Tension 16.2 mmHg (35.0-45.0); pH, Arterial 7.62 (7.35-7.45)
[2022-05-24 22:41] LABS: Puncture Site ALINE
[2022-05-25 00:37] LABS: ALT (SGPT) 29 U/L (8-55); AST (SGOT) 48 U/L (5-34); Albumin 2.5 g/dL (3.5-5.0); Alkaline Phosphatase 83 U/L (40-110); Anion Gap 13 mmol/L (10-20); BUN (Urea Nitrogen) 23 mg/dL (8.4-25.7); Bilirubin, Direct 0.3 mg/dL (0.1-0.3); Bilirubin, Total 0.8 mg/dL (0.2-1.2); Calc. Creatinine Clearance 155 mL/min (70-130); Calcium 7.7 mg/dL (7.8-10.44); Carbon Dioxide 16 mmol/L (22-29); Chloride 112 mmol/L (98-107); Estimated GFR 105; Glucose 154 mg/dL (70-105); Magnesium 2.1 mg/dL (1.6-2.6); Phosphorus 2.4 mg/dL (2.3-4.7); Potassium 3.4 mmol/L (3.5-5.1); Protein, Total 5.5 g/dL (6.0-8.3); Sodium 138 mmol/L (136-145)
[2022-05-25 00:54] LABS: INR-International Normal Ratio 1.1; Prothrombin Time 14.4 sec (12.0-14.7)
[2022-05-25] MEDS: niCARdipine 25 MG in Sodium Chloride 0.9% 250 ML 250 ML IVPB SCH ×2 (01:32→05:04)
[2022-05-25] MEDS: Piperacillin/Tazobactam 3.375 GM in Sodium Chloride 0.9% 100 ML IVPB SCH ×3 (01:33→18:02)
[2022-05-25] MEDS: Potassium Chloride 20 MEQ in Premix Bag 1 BAG IVPB SCH ×2 (01:34→02:38)
[2022-05-25] MEDS: Midazolam HCl 2 mg/2 ml Vial SLOW IVP PRN ×8 (03:50→22:07)
[2022-05-25] MEDS: Enalaprilat Dihydrate 1.25 MG/ML VIAL SLOW IVP SCH ×3 (06:09→18:02)
[2022-05-25] MEDS: HumaLOG 300 UNITS/3 ML VIAL SC PRN ×3 (06:28→17:55)
[2022-05-25 06:55] LABS: INR-International Normal Ratio 1.1; Prothrombin Time 14.8 sec (12.0-14.7)
[2022-05-25 06:58] LABS: Band 3 % (5-11); Hemoglobin 11.9 g/dL (14.0-18.0); Lymphocytes 8 % (21-51); MDiff Complete? YES; Mean Corpuscular HGB CONC 34.2 g/dL (32.0-36.0); Mean Corpuscular Hemoglobin 32.3 pg (27.0-31.0); Mean Corpuscular Volume 94.5 fl (78.0-98.0); Mean Platelet Volume 7.3 fL (7.4-10.4); Monocytes 4 % (0-10); Neutrophil 85 % (42-75); Platelet Count 390 thou/uL (130-400); Red Blood Cell (RBC) Count 3.68 mill/uL (4.70-6.10); White Blood Cell (WBC) Count 19.3 thou/uL (4.8-10.8)
[2022-05-25 07:00] LABS: Lactic Acid 0.7 mmol/L (0.5-2.2)
[2022-05-25 07:21] LABS: ALT (SGPT) 26 U/L (8-55); AST (SGOT) 43 U/L (5-34); Albumin 2.6 g/dL (3.5-5.0); Alkaline Phosphatase 84 U/L (40-110); Anion Gap 15 mmol/L (10-20); BUN (Urea Nitrogen) 24 mg/dL (8.4-25.7); Bilirubin, Direct 0.4 mg/dL (0.1-0.3); Bilirubin, Total 0.9 mg/dL (0.2-1.2); Calc. Creatinine Clearance 140 mL/min (70-130); Calcium 8.1 mg/dL (7.8-10.44); Carbon Dioxide 15 mmol/L (22-29); Chloride 113 mmol/L (98-107); Estimated GFR 103; Glucose 183 mg/dL (70-105); Magnesium 2.2 mg/dL (1.6-2.6); Phosphorus 2.9 mg/dL (2.3-4.7); Potassium 3.8 mmol/L (3.5-5.1); Protein, Total 5.6 g/dL (6.0-8.3); Sodium 139 mmol/L (136-145)
[2022-05-25 07:35] LABS: Actual Bicarbonate (HCO3a) 15.3 mEq/L (22-28); Base Excess (BEa) -4.5 mEq/L (-2.0 to +3.0); Calcium, Ionized (arterial) 1.15 mmol/L (1.12-1.30); Carboxyhemoglobin (COHb) 0.3 gm% (0.0-3.0); Hemoglobin (Hb) 13.4 g/dL (14.0-18.0); O2 Tension (PaO2), arterial 225.6 mmHg (80.0-100.0); Potassium - ABG Lab 3.81 mmol/L (3.70-5.30)
[2022-05-25 07:39] LABS: pH, Arterial 7.55 (7.35-7.45)
[2022-05-25 07:40] LABS: CO2 Tension 17.8 mmHg (35.0-45.0); Puncture Site Arterial Line
[2022-05-25] MEDS: Carvedilol 6.25 MG TAB PER TUBE SCH ×2 (08:12→18:02)
[2022-05-25] MEDS: Furosemide 20 MG/2 ML VIAL SLOW IVP SCH (08:12)
[2022-05-25] MEDS: Lansoprazole 15 MG/5 ML (BATCHED)UDCUP PER TUBE SCH (08:13)
[2022-05-25] MEDS: Aspirin 300 MG Suppository PR SCH (08:13)
[2022-05-25] MEDS: niCARdipine 50 MG in Sodium Chloride 0.9% 250 ML 230 ML IVPB SCH ×2 (08:52→19:37)
[2022-05-25 11:31] LABS: INR-International Normal Ratio 1.2; PTT 31.2 sec (22.9-36.1); Prothrombin Time 15.2 sec (12.0-14.7)
[2022-05-25 11:34] LABS: Lactic Acid 0.8 mmol/L (0.5-2.2)
[2022-05-25 11:40] LABS: ALT (SGPT) 26 U/L (8-55); AST (SGOT) 40 U/L (5-34); Albumin 2.7 g/dL (3.5-5.0); Alkaline Phosphatase 86 U/L (40-110); Anion Gap 15 mmol/L (10-20); BUN (Urea Nitrogen) 25 mg/dL (8.4-25.7); Bilirubin, Direct 0.3 mg/dL (0.1-0.3); Bilirubin, Total 0.9 mg/dL (0.2-1.2); Calc. Creatinine Clearance 133 mL/min (70-130); Calcium 8.2 mg/dL (7.8-10.44); Carbon Dioxide 15 mmol/L (22-29); Chloride 112 mmol/L (98-107); Estimated GFR 98; Glucose 205 mg/dL (70-105); Magnesium 2.1 mg/dL (1.6-2.6); Phosphorus 3.3 mg/dL (2.3-4.7); Potassium 3.6 mmol/L (3.5-5.1); Protein, Total 5.8 g/dL (6.0-8.3); Sodium 138 mmol/L (136-145)
[2022-05-25 12:11] LABS: Bilirubin Negative (Negative); Blood, Urine 3+ (Negative); Glucose, Urine (Dipstick) 150 mg/dL (Negative); Ketone, Urine 40 mg/dL (Negative); Leukocyte Negative Leu/uL (Negative); Nitrite Negative (Negative); Protein, Urine (Dipstick) 100 mg/dL (Neg-Trace); RBC/HPF Greater than 50 HPF (0-3); Specific Gravity, Urine 1.013 (1.002-1.036); Squamous Epithelial 0-3 HPF (0-3); Urobilinogen Normal mg/dL (Less than 2); pH, Urine 5.5 (5.0-9.0)
[2022-05-25 12:14] LABS: Bacteria/HPF 1+ HPF (None Seen); Clarity Cloudy (Clear)
[2022-05-25] MEDS: Morphine 4 MG/ML VIAL SLOW IVP PRN ×3 (12:54→22:52)
[2022-05-25 13:07] LABS: Actual Bicarbonate (HCO3a) 15.6 mEq/L (22-28); Base Excess (BEa) -5.2 mEq/L (-2.0 to +3.0); Calcium, Ionized (arterial) 1.15 mmol/L (1.12-1.30); Carboxyhemoglobin (COHb) 0.1 gm% (0.0-3.0); Hemoglobin (Hb) 12.7 g/dL (14.0-18.0); O2 Tension (PaO2), arterial 154.1 mmHg (80.0-100.0); Potassium - ABG Lab 3.75 mmol/L (3.70-5.30); pH, Arterial 7.51 (7.35-7.45)
[2022-05-25 13:08] LABS: Puncture Site Arterial Line
[2022-05-25 16:35] LABS: INR-International Normal Ratio 1.2; PTT 30.5 sec (22.9-36.1); Prothrombin Time 15.3 sec (12.0-14.7)
[2022-05-25 16:41] LABS: Lactic Acid 0.8 mmol/L (0.5-2.2)
[2022-05-25 16:47] LABS: ALT (SGPT) 24 U/L (8-55); AST (SGOT) 34 U/L (5-34); Albumin 2.5 g/dL (3.5-5.0); Alkaline Phosphatase 79 U/L (40-110); Anion Gap 15 mmol/L (10-20); BUN (Urea Nitrogen) 27 mg/dL (8.4-25.7); Bilirubin, Direct 0.3 mg/dL (0.1-0.3); Bilirubin, Total 0.9 mg/dL (0.2-1.2); Calc. Creatinine Clearance 119 mL/min (70-130); Carbon Dioxide 15 mmol/L (22-29); Chloride 111 mmol/L (98-107); Estimated GFR 86; Glucose 226 mg/dL (70-105); Magnesium 2.2 mg/dL (1.6-2.6); Phosphorus 3.9 mg/dL (2.3-4.7); Potassium 3.6 mmol/L (3.5-5.1); Protein, Total 5.5 g/dL (6.0-8.3); Sodium 137 mmol/L (136-145)
[2022-05-25] MEDS: Albuterol Sulfate 2.5 mg/0.5 ml Neb NEB SCH ×2 (18:41→22:12)
[2022-05-25 19:38] LABS: Actual Bicarbonate (HCO3a) 16.2 mEq/L (22-28); Base Excess (BEa) -4.4 mEq/L (-2.0 to +3.0); Calcium, Ionized (arterial) 1.15 mmol/L (1.12-1.30); Carboxyhemoglobin (COHb) 0.3 gm% (0.0-3.0); Hemoglobin (Hb) 12.6 g/dL (14.0-18.0); O2 Tension (PaO2), arterial 348.4 mmHg (80.0-100.0); Potassium - ABG Lab 3.66 mmol/L (3.70-5.30); pH, Arterial 7.53 (7.35-7.45)
[2022-05-25] MEDS: Atorvastatin Calcium 40 MG TAB PO SCH (21:47)
[2022-05-25] MEDS: Enoxaparin Sodium 40 MG/0.4 ML SYRINGE SC SCH (21:47)
[2022-05-25 23:17] LABS: ALV-art Gradient 339.475 mmHg (0-20); CO2 Tension 20.1 mmHg (35.0-45.0); Puncture Site ALINE
[2022-05-25 23:54] LABS: Lactic Acid 0.8 mmol/L (0.5-2.2)
[2022-05-26 00:01] LABS: ALT (SGPT) 22 U/L (8-55); AST (SGOT) 35 U/L (5-34); Albumin 2.4 g/dL (3.5-5.0); Alkaline Phosphatase 78 U/L (40-110); Anion Gap 13 mmol/L (10-20); BUN (Urea Nitrogen) 28 mg/dL (8.4-25.7); Bilirubin, Direct 0.3 mg/dL (0.1-0.3); Bilirubin, Total 0.8 mg/dL (0.2-1.2); Calc. Creatinine Clearance 124 mL/min (70-130); Calcium 7.9 mg/dL (7.8-10.44); Carbon Dioxide 15 mmol/L (22-29); Chloride 115 mmol/L (98-107); Estimated GFR 91; Glucose 180 mg/dL (70-105); Magnesium 2.1 mg/dL (1.6-2.6); Phosphorus 3.7 mg/dL (2.3-4.7); Potassium 3.4 mmol/L (3.5-5.1); Protein, Total 5.4 g/dL (6.0-8.3); Sodium 140 mmol/L (136-145)
[2022-05-26 00:13] LABS: INR-International Normal Ratio 1.2; Prothrombin Time 15.5 sec (12.0-14.7)
[2022-05-26 00:14] LABS: PTT 34.8 sec (22.9-36.1)
[2022-05-26] MEDS ORDERED: Propofol 1,000 MG/100 ML VIAL IV ONE (00:30)
[2022-05-26] MEDS: Midazolam HCl 2 mg/2 ml Vial SLOW IVP PRN ×2 (00:41→10:59)
[2022-05-26] MEDS: HumaLOG 300 UNITS/3 ML VIAL SC PRN ×2 (00:43→05:59)
[2022-05-26] MEDS: Propofol 1,000 MG/100 ML VIAL IV PRN ×3 (00:49→11:33)
[2022-05-26] MEDS: Enalaprilat Dihydrate 1.25 MG/ML VIAL SLOW IVP SCH ×3 (00:51→11:18)
[2022-05-26] MEDS: Piperacillin/Tazobactam 3.375 GM in Sodium Chloride 0.9% 100 ML IVPB SCH ×2 (01:47→08:54)
[2022-05-26] MEDS: Potassium Chloride 20 MEQ in Premix Bag 1 BAG IVPB SCH ×2 (01:47→03:53)
[2022-05-26] MEDS: Albuterol Sulfate 2.5 mg/0.5 ml Neb NEB SCH ×4 (02:57→14:42)
[2022-05-26] MEDS ORDERED: Ondansetron PF 4 MG/2 ML Vial IVP PRN (05:37)
[2022-05-26 06:08] LABS: Hemoglobin 10.4 g/dL (14.0-18.0); Mean Corpuscular HGB CONC 33.1 g/dL (32.0-36.0); Mean Corpuscular Hemoglobin 31.6 pg (27.0-31.0); Mean Corpuscular Volume 95.3 fl (78.0-98.0); Mean Platelet Volume 7.3 fL (7.4-10.4); Platelet Count 398 thou/uL (130-400); RBC Distribution Width 12.5 % (11.5-14.5); Red Blood Cell (RBC) Count 3.29 mill/uL (4.70-6.10); White Blood Cell (WBC) Count 21.5 thou/uL (4.8-10.8)
[2022-05-26 06:15] VITALS: TEMP 98.5
[2022-05-26 06:22] LABS: Band 7 % (5-11); INR-International Normal Ratio 1.2; Lymphocytes 8 % (21-51); MDiff Complete? YES; Monocytes 1 % (0-10); Myelocyte 2 % (0-0); Neutrophil 82 % (42-75); Prothrombin Time 15.4 sec (12.0-14.7)
[2022-05-26 06:23] LABS: Lactic Acid 0.9 mmol/L (0.5-2.2); PTT 34.5 sec (22.9-36.1)
[2022-05-26 06:27] LABS: ALT (SGPT) 20 U/L (8-55); AST (SGOT) 27 U/L (5-34); Albumin 2.4 g/dL (3.5-5.0); Alkaline Phosphatase 70 U/L (40-110); Anion Gap 12 mmol/L (10-20); BUN (Urea Nitrogen) 30 mg/dL (8.4-25.7); Bilirubin, Direct 0.2 mg/dL (0.1-0.3); Bilirubin, Total 0.6 mg/dL (0.2-1.2); Calc. Creatinine Clearance 113 mL/min (70-130); Calcium 7.6 mg/dL (7.8-10.44); Carbon Dioxide 16 mmol/L (22-29); Chloride 117 mmol/L (98-107); Estimated GFR 81; Glucose 173 mg/dL (70-105); Magnesium 2.1 mg/dL (1.6-2.6); Potassium 4.1 mmol/L (3.5-5.1); Protein, Total 5.1 g/dL (6.0-8.3); Sodium 141 mmol/L (136-145)
[2022-05-26 07:02] LABS: Actual Bicarbonate (HCO3a) 18.9 mEq/L (22-28); Base Excess (BEa) -2.9 mEq/L (-2.0 to +3.0); Calcium, Ionized (arterial) 1.19 mmol/L (1.12-1.30); Carboxyhemoglobin (COHb) 0.3 gm% (0.0-3.0); Hemoglobin (Hb) 12.1 g/dL (14.0-18.0); O2 Tension (PaO2), arterial 414.9 mmHg (80.0-100.0); Potassium - ABG Lab 4.15 mmol/L (3.70-5.30)
[2022-05-26 07:04] LABS: CO2 Tension 24.8 mmHg (35.0-45.0); Puncture Site Arterial Line
[2022-05-26] MEDS: Furosemide 20 MG/2 ML VIAL SLOW IVP SCH (07:23)
[2022-05-26] MEDS: Morphine 4 MG/ML VIAL SLOW IVP PRN ×3 (07:23→12:13)
[2022-05-26] MEDS ORDERED: Heparin 30,000 units/30 ml VIAL SLOW IVP SCH (07:30)
[2022-05-26 08:13] LABS: Bilirubin Negative (Negative); Blood, Urine 3+ (Negative); Clarity Turbid (Clear); Glucose, Urine (Dipstick) 50 mg/dL (Negative); Ketone, Urine 10 mg/dL (Negative); Leukocyte Negative Leu/uL (Negative); Nitrite Negative (Negative); Protein, Urine (Dipstick) 200 mg/dL (Neg-Trace); Specific Gravity, Urine 1.031 (1.002-1.036); Squamous Epithelial 0-3 HPF (0-3); Urobilinogen Normal mg/dL (Less than 2); pH, Urine 5.5 (5.0-9.0)
[2022-05-26 08:15] LABS: Bacteria/HPF 1+ HPF (None Seen)
[2022-05-26] MEDS: Carvedilol 6.25 MG TAB PER TUBE SCH (08:47)
[2022-05-26] MEDS: Aspirin 300 MG Suppository PR SCH (08:49)
[2022-05-26] MEDS: Lansoprazole 15 MG/5 ML (BATCHED)UDCUP PER TUBE SCH (08:49)
[2022-05-26 10:24] VITALS: BP 113/62
[2022-05-26] MEDS ORDERED: Morphine 4 MG/ML VIAL SLOW IVP PRN (10:47)
[2022-05-26] MEDS ORDERED: Midazolam HCl 2 mg/2 ml Vial SLOW IVP PRN (10:47)
[2022-05-26] MEDS ORDERED: Scopolamine 1.5 mg/72 hour Patch TD SCH (11:00)
== END 2022-05-26 13:26 | disposition expired ==
LOC: ERS 19:20 → CCL 20:58 → CCU 21:25
PROVIDERS: ADMIT Internal Medicine Cardiovascular Disease; ATTEND Internal Medicine
PROC: 5A1955Z Respiratory Ventilation, Greater than 96 Consecutive Hours (ICD-10-PCS; principal; 2022-05-18)
PROC: 0BH17EZ Insertion of Endotracheal Airway into Trachea, Via Natural or Artificial Opening (ICD-10-PCS; 2022-05-18)
PROC: 3E03329 Introduction of Other Anti-infective into Peripheral Vein, Percutaneous Approach (ICD-10-PCS; 2022-05-18)
PROC: 0D9670Z Drainage of Stomach with Drainage Device, Via Natural or Artificial Opening (ICD-10-PCS; 2022-05-18)
PROC: 3E033XZ Introduction of Vasopressor into Peripheral Vein, Percutaneous Approach (ICD-10-PCS; 2022-05-18)
PROC: 4A023N7 Measurement of Cardiac Sampling and Pressure, Left Heart, Percutaneous Approach (ICD-10-PCS; 2022-05-18)
PROC: B2111ZZ Fluoroscopy of Multiple Coronary Arteries using Low Osmolar Contrast (ICD-10-PCS; 2022-05-18)
PROC: B2151ZZ Fluoroscopy of Left Heart using Low Osmolar Contrast (ICD-10-PCS; 2022-05-18)
PROC: 4A12XSH Monitoring of Cardiac Vascular Perfusion using Indocyanine Green Dye, External Approach (ICD-10-PCS; 2022-05-18)
PROC: 03HY32Z Insertion of Monitoring Device into Upper Artery, Percutaneous Approach (ICD-10-PCS; 2022-05-22)
PROC: 0BJ08ZZ Inspection of Tracheobronchial Tree, Via Natural or Artificial Opening Endoscopic (ICD-10-PCS; 2022-05-23)
DX: I21.09 ST elevation (STEMI) myocardial infarction involving other coronary artery of anterior wall (principal); A41.9 Sepsis, unspecified organism; G93.41 Metabolic encephalopathy; J96.01 Acute respiratory failure with hypoxia; J69.0 Pneumonitis due to inhalation of food and vomit; I69.354 Hemiplegia and hemiparesis following cerebral infarction affecting left non-dominant side; G93.1 Anoxic brain damage, not elsewhere classified; E87.1 Hypo-osmolality and hyponatremia; I50.32 Chronic diastolic (congestive) heart failure; I45.2 Bifascicular block; I49.01 Ventricular fibrillation; Z51.5 Encounter for palliative care; Z66 Do not resuscitate; Z20.822 Contact with and (suspected) exposure to COVID-19; I46.2 Cardiac arrest due to underlying cardiac condition; I25.10 Atherosclerotic heart disease of native coronary artery without angina pectoris; E87.6 Hypokalemia; E11.65 Type 2 diabetes mellitus with hyperglycemia; E78.00 Pure hypercholesterolemia, unspecified; K21.9 Gastro-esophageal reflux disease without esophagitis; I11.0 Hypertensive heart disease with heart failure; E66.9 Obesity, unspecified; D72.829 Elevated white blood cell count, unspecified; G93.89 Other specified disorders of brain; E11.649 Type 2 diabetes mellitus with hypoglycemia without coma; Z88.2 Allergy status to sulfonamides; Z79.84 Long term (current) use of oral hypoglycemic drugs; Z79.82 Long term (current) use of aspirin; Z79.899 Other long term (current) drug therapy; Z68.34 Body mass index [BMI] 34.0-34.9, adult; Z52.9 Donor of unspecified organ or tissue
CPT/HCPCS: 31500; 36415; 36416; 36556; 36600; 51702; 71045; 71250; 74177; 80048; 80053; 80076; 80306; 80307; 81001; 82553; 82805; 83036; 83605; 83735; 83880; 84100; 84484; 85025; 85347; 85610; 85730; 87040; 87086; 87205; 87811; 92950; 93005; 93010; 93458; 94002; 94003; 94640; 95816; 95819; 95957; 96374; C1769; C1894; C9113; J0153; J0171; J0282; J0696; J1644; J1650; J1815; J1940; J2001; J2250; J2270; J2405; J2543; J2704; J3475; J3480; J3490; J7050; J7611; P9047; Q9967; U0002